=== PATIENT | female | born 1985 | race Native Hawaiian/Other Pacific Islander ===

== ENCOUNTER 2017-12-19 16:59 | Emergency (ER) | payer SELFPAY ==
[2017-12-19 17:23] VITALS: BP 132/83; PULSE 90; RESP 16; TEMP 98.5; O2SAT 100
--- NOTE | 2017-12-19 18:29 | ED PDOC ---
HPI: Female Pain Time Seen by Provider: 12/19/17 17:46 Chief Complaint (Nursing): Female Genitourinary Chief Complaint (Provider): Abdominal pain, thinks she is History Per: Patient History/Exam Limitations: no limitations Onset/Duration Of Symptoms: Other (x1 month) Additional Complaint(s): 32 year old female, with no past medical history, presents to the ED complaining of lower abdominal pain for 1 month. Last menstrual period was 10/15. Patient states she didn't take a test but she thinks she is because symptoms feel the same as previous . Patient did not follow up with [facility] and has not started vitamins. She reports having seen blood in urine but wasn't sure if it was from urine or vagina. Patient also wanted to know if she could get a picture to see if she was . PMD: none Past Medical History Reviewed: Historical Data, Nursing Documentation, Vital Signs Vital Signs: Last Vital Signs Temp 98.5 F 12/19/17 17:23 Pulse 90 12/19/17 17:23 Resp 16 12/19/17 17:23 BP 132/83 12/19/17 17:23 Pulse Ox 100 12/19/17 17:23 - Medical History PMH: No Chronic Diseases - Surgical History Surgical History: No Surg Hx - Family History Family History: States: Unknown Family Hx - Allergies Allergies/Adverse Reactions: Allergies Allergy/AdvReac Type Severity Reaction Status Date / Time contrast Allergy SHORTNESS Uncoded 12/19/17 17:23 OF BREATH Review of Systems ROS Statement: Except As Marked, All Systems Reviewed And Found Negative Gastrointestinal: Positive for: Abdominal Pain (lower) Physical Exam - Reviewed Nursing Documentation Reviewed: Yes Vital Signs Reviewed: Yes - Physical Exam Appears: Positive for: Non-toxic Head Exam: Positive for: ATRAUMATIC, NORMOCEPHALIC Skin: Positive for: Normal Color, Warm, Dry Eye Exam: Positive for: Normal appearance Neck: Positive for: Normal, Painless ROM Respiratory: Negative for: Respiratory Distress Gastrointestinal/Abdominal: Positive for: Tenderness (mild lower abdominal tenderness equal bilaterally) Extremity: Positive for: Normal ROM Neurologic/Psych: Positive for: Alert, Oriented. Negative for: Motor/Sensory Deficits - Laboratory Results Result Diagrams: 12/19/17 19:35 12/19/17 18:35 - ECG O2 Sat by Pulse Oximetry: 100 (RA) Pulse Ox Interpretation: Normal Medical Decision Making Medical Decision Making: Initial Impression: Lower abdominal pain Initial Plan: --Type and screen --Beta HCG --CMP --ED urine --ED urine dipstick --CBC --Urine culture --OB transvaginal US Scribe Attestation: Documented by Matthew Candelaria acting as a scribe for Verito MARTINEZ. Provider Scribe Attestation: All medical record entries made by the Scribe were at my direction and personally dictated by me. I have reviewed the chart and agree that the record accurately reflects my personal performance of the history, physical exam, medical decision making, and the department course for this patient. I have also personally directed, reviewed, and agree with the discharge instructions and disposition. Disposition - Clinical Impression Clinical Impression: Abdominal pain affecting - Patient ED Disposition Is Patient to be Admitted: No Counseled Patient/Family Regarding: Diagnosis, Need For Followup - Disposition [facility] Disposition: Routine/Home Disposition Time: 20:25 Condition: GOOD Additional Instructions: Please begin vitamins. Instructions: Medications and Forms: [employer] ([employer])
[2017-12-19 19:02] LABS: BASO # 0.1 K/uL (0.0-0.2); BASO % 0.7 % (0.0-2.0); EOS # 0.1 K/uL (0.0-0.7); EOS % 0.8 % (0.0-4.0); HEMOGLOBIN 12.9 g/dL (12.0-16.0); LYMPH # 2.5 K/uL (1.0-4.3); LYMPH % 24.6 % (20.0-40.0); MEAN CELL VOLUME 86.9 fl (81.0-99.0); MEAN CORPUSCULAR HGB CONC 33.3 g/dL (33.0-37.0); MEAN PLATELET VOLUME 8.9 fl (7.2-11.7); MONO # 0.7 K/uL (0.0-0.8); MONO % 6.7 % (0.0-10.0); NEUT # 6.8 K/uL (1.8-7.0); NEUT % 67.2 % (50.0-75.0); RBC 4.46 Mil/uL (3.80-5.20); RED CELL DISTRIBUTION WIDTH 13.4 % (11.5-14.5); WHITE BLOOD COUNT 10.1 K/uL (4.8-10.8)
[2017-12-19 19:24] LABS: ALB/GLOB RATIO 0.9 (1.0-2.1); ALBUMIN 4.3 g/dL (3.5-5.0); ALT/SGPT 15 U/L (9-52); AST/SGOT 23 U/L (14-36); BLOOD UREA NITROGEN 11 mg/dl (7-17); CALCIUM 9.4 mg/dL (8.4-10.2); GFR NON-AFRICAN AMERICAN > 60
--- NOTE | 2017-12-20 10:58 | US ---
Date of service: 12/19/2017 PROCEDURE: OB Pelvic Ultrasound HISTORY: Vaginal bleeding in COMPARISON: None available. TECHNIQUE: Transvaginal pelvic ultrasound was performed. FINDINGS: UTERUS: Single Live intrauterine gestation. CRL measures 1.81 cm equivalent to 8 weeks and 2 days of gestational age. Gestational sac diameter measures 3.39 cm equivalent to 8 weeks and 3 days of gestational age. age (Ultrasound estimated): 8 weeks and 3 days Date of delivery (Ultrasound estimated) : 07/28/2018 Heart rate: 181 bpm. Annemarie-gestational hemorrhage: There is 1.0 x 0.5 x 0.6 cm left lateral wall subchorionic hemorrhage. Measures 9.7 x 6.8 x 6.2 cm. Normal in size and appearance. No fibroid or other mass lesion seen. CERVIX: Long and closed. No cervical abnormality seen. RIGHT OVARY: Measures 1.8 x 1.5 x 1.0 cm. No mass. Normal flow. LEFT OVARY: Measures 3.6 x 1.5 x 1.8 cm. No mass. Normal flow. FREE FLUID: None. OTHER FINDINGS: None. IMPRESSION: Single live intrauterine gestational sac with mean gestational age of 8 weeks and 3 days. The estimated date of delivery by ultrasound is 07/28/2018. The ultrasound dates correspond with the clinical dates. 1.0 cm subchorionic hemorrhage. Clinical follow-up is advised. A preliminary report was provided by [employer].
== END 2017-12-19 20:34 | disposition home or self-care (01) ==
LOC: H.ER 16:59
DX: O26.91 Pregnancy related conditions, unspecified, first trimester (principal); R10.2 Pelvic and perineal pain; Z3A.08 8 weeks gestation of pregnancy